=== PATIENT | male | born 1995 | race Caucasian/White ===

== ENCOUNTER 2019-07-30 14:27 | Observation (INO) | payer MEDICARE ==
[2019-07-30 14:31] VITALS: TEMP 97.8; BMI 27.7
[2019-07-30] MEDS ORDERED: KETOROLAC TROMETHAMINE 30 MG/1 ML VIAL IVPUSH ONE (15:41)
[2019-07-30] MEDS ORDERED: KETOROLAC TROMETHAMINE 30 MG/1 ML VIAL ONE (15:49)
--- NOTE | 2019-07-30 15:52 | PDOC ---
History of Present Illness - General Chief Complaint: Pain Stated Complaint: SOB/CHEST PAIN Time Seen by Provider: 07/30/19 14:43 - History of Present Illness Initial Comments: 07/30/19 15:47 CHIEF COMPLAINT: chest pain HISTORY OF PRESENT ILLNESS: 23 yo M with no PMH presents to fast track with sudden onset chest pain since this morning. Patient states he was not doing anything when the pain started "I was just sitting there." He describes the pain as a stabbing pain "like I'm getting stabbed in the chest" and states that he cannot breathe due to the pain. The pain is worsened by any movement as well as inspiration. Denies any fever, cough, chills, nausea, vomiting. No recent travel or sick contacts. PAST MEDICAL HISTORY: Denies past medical history FAMILY HISTORY: Grandfather hx of [place] in his 20s. SOCIAL HISTORY: Marijuana use, daily 1-2 pack daily smoker. Denies alcohol, illicit drug use. SURGICAL HISTORY: Denies ALLERGIES: No known drug allergies REVIEW OF SYSTEMS General/Constitutional: Denies fever or chills. Denies weakness, weight change. HEENT: Denies change in vision. Denies ear pain or discharge. Denies sore throat. Cardiovascular: Right sided chest pain, worse with movement. Respiratory: Denies cough, wheezing, or hemoptysis. Gastrointestinal: Denies nausea, vomiting, diarrhea or constipation. Denies rectal bleeding. Genitourinary: Denies dysuria, frequency, or change in urination. Musculoskeletal: Denies joint or muscle swelling or pain. Denies neck or back pain. Skin and breasts: Denies rash or easy bruising. Neurologic: Denies headache, vertigo, loss of consciousness, or loss of sensation. PHYSICAL EXAM General Appearance: Anxious-appearing. Appropriately dressed. No apparent distress, no intoxication. HEENT: EOMI, PERRLA, normal ENT inspection, normal voice, TMs normal, pharynx normal. No conjunctival pallor. No photophobia, scleral icterus. Neck: Supple. Trachea midline. No tenderness, rigidity, carotid bruit, stridor , lymphadenopathy, or thyromegaly. Respiratory/Chest: Poor air entry. R chest wall tendernss. No crackles, rales , rhonchi, stridor, wheezing appreciated. Cardiovascular: RRR. S1, S2. No JVD, murmur, bradycardia, tachycardia. Vascular Pulses: Dorsalis-Pedis (R): 2+, Dorsalis-Pedis (L): 2+ Gastrointestinal/Abdominal: Normal bowel sounds. Abdomen soft, non-distended. No tenderness or rebound tenderness. No organomegaly, pulsatile mass, guarding , hernia, hepatomegaly, splenomegaly. Musculoskeletal/Extremities: Normal inspection. FROM of all extremities, normal capillary refill. Pelvis Stable. No CVA tenderness. No tenderness to extremities, pedal edema, swelling, erythema or deformity. Integumentary: Appropriate color, dry, warm. No cyanosis, erythema, jaundice or rash Neurologic: mat sewer II-XII intact. Fully oriented, alert. Appropriate mood/affect. Motor strength 5/5. No appreciable EOM palsy, facial droop or sensory deficit. Past History - Past Medical History Allergies/Adverse Reactions: Allergies Allergy/AdvReac Type Severity Reaction Status Date / Time No Known Allergies Allergy Verified 07/30/19 14:31 Home Medications: Ambulatory Orders NK [No Known Home Medication] 07/30/19 COPD: No - Suicide/Smoking/Psychosocial Hx Smoking History: Current every day smoker Information on smoking cessation initiated: No *Physical Exam - Vital Signs Last Vital Signs Temp Pulse Resp BP Pulse Ox 97.8 F 63 16 129/82 99 07/30/19 14:28 07/31/19 07:10 07/31/19 07:10 07/31/19 07:10 07/31/19 07:10 ED Treatment Course - LABORATORY CBC & Chemistry Diagram: 07/30/19 15:47 07/30/19 15:47 - ADDITIONAL ORDERS Additional order review: 07/30/19 15:47 RBC 5.50 MCV 95.5 MCHC 33.3 RDW 14.2 MPV 8.8 Neutrophils % 82.5 Lymphocytes % 5.1 L Monocytes % 12.2 H Eosinophils % 0.1 Basophils % 0.1 - RADIOLOGY Radiology Studies Ordered: Category Date Time Status CHEST PA & LAT [RAD] Stat Radiology 07/30/19 15:09 Completed - Medications Given in the ED: ED Medications Discontinued Medications Generic Name Dose Route Start Last Admin Trade Name Freq PRN Reason Stop Dose Admin Sodium Chloride 1,000 mls @ 83 mls/hr 07/30/19 23:45 07/31/19 00:22 Normal Saline - IV 07/31/19 11:48 83 mls/hr ASDIR BOB Administration Folic Acid 1 mg/ Thiamine HCl 1,000 mls @ 125 mls/hr 07/31/19 02:59 07/31/19 03:06 100 mg/ Multivitamins/Minerals IVPB 07/31/19 10:58 Not Given 10 ml/ Sodium Chloride ONCE ONE Ketorolac Tromethamine 15 mg 07/30/19 15:41 07/30/19 15:50 Toradol Injection - IVPUSH 07/30/19 15:42 15 mg ONCE ONE Administration Morphine Sulfate 2 mg 07/30/19 19:14 07/30/19 20:00 Morphine Injection - IVPUSH 07/30/19 19:15 2 mg ONCE ONE Administration Medical Decision Making - Medical Decision Making 07/30/19 15:51 23 yo M with no PMH presents to fast track with sudden onset chest pain since this morning. -ekg -labs -cxr -toradol 07/30/19 16:17 Patient repeatedly denied any use of cocaine or vaping. Given pain disproportionate to history, will workup to r/o cardiac etiology of chest pain. Will transfer to main ED for further workup. Note: Patient was initially triaged to Fast-track. After review of the history of present illness and physical examination by Nurse Practitioner, the patient was transfered to the main ED for higher lever of care. The patient is medically stable for transfer, ED attending and charge nurse/main ED nursing staff aware. Discussed case with attending MD Perkins and SMALL PIECE CUTTER Torsten. trimming press operator Yousef aware. *DC/Admit/Observation/Transfer Diagnosis at time of Disposition: Chest pain Qualifiers: Chest pain type: other chest pain Qualified Code(s): R07.89 - Other chest pain - Discharge Dispostion Disposition: AGAINST MEDICAL ADVICE Condition at time of disposition: Fair - Referrals - Patient Instructions - Post Discharge Activity
[2019-07-30 16:21] LABS: BASO % 0.1 % (0-2.0); EOS % 0.1 % (0-4.5); HEMATOCRIT 52.5 % (35.4-49); HEMOGLOBIN 17.5 GM/dL (11.7-16.9); LYMPH % 5.1 % (8-40); MCH 31.8 pg (25.7-33.7); MCHC 33.3 g/dl (32.0-35.9); MEAN CELL VOLUME 95.5 fl (80-96); MEAN PLT VOLUME 8.8 fl (7.5-11.1); MONO % 12.2 % (3.8-10.2); NEUT % 82.5 % (42.8-82.8); PLATELET COUNT 381 K/MM3 (134-434); RDW 14.2 % (11.9-15.9); WHITE BLOOD COUNT 22.7 K/mm3 (4.0-10.0)
[2019-07-30 16:25] LABS: BLOOD UREA NITROGEN 8.8 mg/dL (7-18); CREATININE 0.9 mg/dL (0.55-1.3); POTASSIUM 4.3 mmol/L (3.5-5.1); TOT PROT 9.4 g/dl (6.4-8.2)
[2019-07-30 16:56] LABS: PLATELET ESTIMATE INCREASED
--- NOTE | 2019-07-30 17:11 | PDOC ---
*Physical Exam - Vital Signs Last Vital Signs Temp Pulse Resp BP Pulse Ox 97.8 F 58 L 18 133/88 98 07/30/19 14:28 07/30/19 14:28 07/30/19 14:28 07/30/19 14:28 07/30/19 14:28 - Physical Exam General Appearance: Yes: Appropriately Dressed. No: Apparent Distress HEENT: positive: Normal ENT Inspection Neck: positive: Trachea midline, Supple Respiratory/Chest: positive: Chest Tender (Diffuse tenderness over right ACW), Lungs Clear, Normal Breath Sounds. negative: Respiratory Distress, Accessory Muscle Use Cardiovascular: positive: Regular Rhythm, S1, S2, Bradycardia. negative: Murmur Vascular Pulses: Femoral (R): 2+, Femoral (L): 2+, Carotid (R): 2+, Carotid (L) : 2+, Dorsalis-Pedis (R): 2+, Doralis-Pedis (L): 2+ Gastrointestinal/Abdominal: positive: Normal Bowel Sounds, Soft. negative: Tender Heart Score/ECG Review - History History: Moderately suspicious - Electrocardiogram EKG: Normal - Age Age: </= 45 - Risk Factors Risk Factors Heart Score: Yes Smoking History, Yes Positive family hx of cardiac disease Based on the list above the patient has:: 1-2 risk factors - Troponin Troponin: </= normal limit - Score Heart Score - Total: 2 ED Treatment Course - LABORATORY CBC & Chemistry Diagram: 07/30/19 15:47 07/30/19 15:47 - ADDITIONAL ORDERS Additional order review: Laboratory Results 07/30/19 07/30/19 15:47 15:47 Sodium 137 Potassium 4.3 Chloride 101 Carbon Dioxide 29 Anion Gap 7 L BUN 8.8 Creatinine 0.9 Est GFR (CKD-EPI)AfAm 139.04 Est GFR (CKD-EPI)NonAf 119.96 Random Glucose 104 Calcium 10.0 Total Bilirubin 1.0 AST 31 ALT 27 Alkaline Phosphatase 124 H Creatine Kinase 294 Troponin I < 0.02 Total Protein 9.4 H Albumin 5.0 07/30/19 15:47 RBC 5.50 MCV 95.5 MCHC 33.3 RDW 14.2 MPV 8.8 Neutrophils % 82.5 Lymphocytes % 5.1 L Monocytes % 12.2 H Eosinophils % 0.1 Basophils % 0.1 - RADIOLOGY Radiology Studies Ordered: Category Date Time Status CHEST CTA [CT] Stat CT Scan 07/30/19 16:38 Ordered - Medications Given in the ED: ED Medications Discontinued Medications Generic Name Dose Route Start Last Admin Trade Name [place] PRN Reason Stop Dose Admin Ketorolac Tromethamine 15 mg 07/30/19 15:41 07/30/19 15:50 Toradol Injection - IVPUSH 07/30/19 15:42 15 mg ONCE ONE Administration Progress Note - Progress Note Progress Note: Received signout from nurse practitioner Annie. Briefly this is a 23-year-old male comes emergency department for evaluation of rapidly progressing right sided chest pain radiating to his right neck and upper back. Patient reports the pain came on as a imaging/piercing sensation to the right chest which was worse with movement of his right arm. Pain in progressed throughout his chest extending over his neck and into his back. Patient received Toradol 50 mg and fast-track which relieved this pain is now currently 7/10. He no longer has pain with articulation of the right shoulder. Laboratory testing is notable for WBC 22.7. Patient also with elevated hemoglobin and hematocrit 17.5/52.5. Cardiac enzymes are normal. Upon questioning patient reports intranasal cocaine use yesterday. Given elevated white blood cell count, rapid progression in chest pain as well as recent cocaine use we'll get a CTA to rule out an aortic dissection. Patient will likely have to be admitted Medical Decision Making - Medical Decision Making 07/30/19 21:25 CTA is read by imaging director compensation: No definite mediastinal mass seen. No thoracic aortic aneurysm or dissection or mediastinal hematoma found. Lungs show no focal consolidation or effusion. Abdominal aorta shows no aneurysm or dissection. No retroperitoneal hematoma is seen. Small right renal cyst. I will admit to hospitalist for observation. *DC/Admit/Observation/Transfer Diagnosis at time of Disposition: Chest pain Qualifiers: Chest pain type: other chest pain Qualified Code(s): R07.89 - Other chest pain - Discharge Dispostion Condition at time of disposition: Fair Decision to Admit order: Yes - Referrals - Patient Instructions - Post Discharge Activity
[2019-07-30] MEDS ORDERED: morphine CARPU-JECT 2 MG/1 ML DISP.SYRIN IVPUSH ONE (19:14)
[2019-07-30] MEDS ORDERED: MORPHINE SULFATE 2 MG/ML VIAL ONE (20:06)
[2019-07-30] MEDS ORDERED: ACETAMINOPHEN 325 MG TABLET (FP) PO PRN (22:40)
--- NOTE | 2019-07-30 23:42 | HP ---
CHIEF COMPLAINT: Chest Pain PCP: None HISTORY OF PRESENT ILLNESS: Pt. is a 23 y.o. M w/o PMHx. presents to the ED with R. sided chest pain. Pt states it began today after 2 days of "partying." Pt. endorses using cocaine (1 gram), alcohol and marijuana at the [facility] and states that he frequently uses cocaine (inhales only, never IV). Pt. states that he buys from the same dealer all the time and that no one else who used cocaine at the [facility] got sick. Pt. endorses palpitations, reproducible chest pain that radiates the the right jaw, arm, upper back and to the diaphragm. Pt. denies this ever happening before after using cocaine. Pt. endorses chills, headache that is constant in the temporal regions bilaterally but that it moves around. Currently the chest pain is 5/10 and the headache is 8/10. Pt. endorses shortness of breath that is exacerbated by the chest pain but denies any lightheadedness or dizziness currently. ER course was notable for: (1)CXR, CBC, CMP, Trops (2)EKG, CTA Abd. CTA (3) Morphine Recent Travel: No PAST MEDICAL HISTORY: None PAST SURGICAL HISTORY: None Social History: Smokin.5 PPD Alcohol: 1.5 750ml bottles of liquor Drugs: Cocaine([facility] Only), marijuana Family History: Grandparents had heart disease Allergies No Known Allergies Allergy (Verified 07/30/19 14:31) HOME MEDICATIONS: Home Medications Medication Instructions Recorded NK [No Known Home Medication] 07/30/19 REVIEW OF SYSTEMS As above PHYSICAL EXAMINATION Vital Signs - 24 hr 07/30/19 14:28 Temperature 97.8 F Pulse Rate 58 L Respiratory 18 Rate Blood Pressure 133/88 O2 Sat by Pulse 98 Oximetry (%) GENERAL: Awake, alert, and fully oriented, in no acute distress. HEAD: Normal with no signs of trauma. EYES: Extraocular movements intact, sclera anicteric, conjunctiva clear. No lid lag. EARS, NOSE, THROAT: Ears normal, nares patent, oropharynx clear without exudates. Moist mucous membranes. NECK: Normal range of motion JVD, or masses. LUNGS: Breath sounds equal, clear to auscultation bilaterally. No wheezes, and no crackles. HEART: Regular rate and rhythm, normal S1 and S2 without murmur, rub or gallop. ABDOMEN: Soft, nontender, not distended, normoactive bowel sounds, no guarding, no rebound, no masses. MUSCULOSKELETAL: Normal range of motion at all joints. No bony deformities or tenderness. No CVA tenderness. UPPER EXTREMITIES: 2+ radial pulses, warm, well-perfused. No cyanosis. No clubbing. LOWER EXTREMITIES: 2+ pulses, warm, well-perfused. No calf tenderness. No peripheral edema. NEUROLOGICAL: Normal speech. No focal deficits appreciated PSYCHIATRIC: Cooperative. Prolonged eye contact. Appropriate mood and affect. SKIN: Warm, dry, normal turgor, extensive skin tattoos, normal capillary refill. Laboratory Results - last 24 hr 07/30/19 07/30/19 07/30/19 15:47 15:47 15:47 WBC 22.7 H RBC 5.50 Hgb 17.5 H Hct 52.5 H MCV 95.5 MCH 31.8 MCHC 33.3 RDW 14.2 Plt Count 381 MPV 8.8 Absolute Neuts (auto) 18.8 H Total Counted 100 Neutrophils % 82.5 Neutrophils % (Manual) 86.0 H Band Neutrophils % 1.0 Lymphocytes % 5.1 L Lymphocytes % (Manual) 3.0 L Monocytes % 12.2 H Monocytes % (Manual) 10 Eosinophils % 0.1 Basophils % 0.1 Nucleated RBC % 0 Platelet Estimate Increased Platelet Comment Rare giant plts Sodium 137 Potassium 4.3 Chloride 101 Carbon Dioxide 29 Anion Gap 7 L BUN 8.8 Creatinine 0.9 Est GFR (CKD-EPI)AfAm 139.04 Est GFR (CKD-EPI)NonAf 119.96 Random Glucose 104 Calcium 10.0 Total Bilirubin 1.0 AST 31 ALT 27 Alkaline Phosphatase 124 H Creatine Kinase 294 Creatine Kinase Index 0.6 CK-MB (CK-2) 2.0 Troponin I < 0.02 Total Protein 9.4 H Albumin 5.0 ASSESSMENT/PLAN: Pt. is a 23 y.o. M w/o PMHx. presents to the ED with R. sided chest pain. Pt states it began today after 2 days of "partying" with cocaine, EtOH and marijuana. #Chest Pain r/o ACS Trop - x1, f/u repeat EKG showed normal variant of J-Point elevations(early repolarizations) in precordial leads CXR: unremarkable CTA/Abd. CTA: No acute pathology, no evidence of dissection or mediastinal pathology, no PE CK wnl, f/u UA NO BB Ibuprofen and Tylenol PRN for pain Cardiac monitoring--> if benign can D/c in AM #Poly substance abuse f/u UTox Counselled Pt. on cocaine and nicotine cessation as well as decreasing alcohol use Pt. would benefit from additional counseling and options for nicotine cessation (states that the gum does not work for him) #FEN NS @ 83 for 1 bag, encourage PO intake monitor electrolytes and replete as needed Regular Diet #DVT Ppx Early ambulation ATTENDING PHYSICIAN STATEMENT I saw and evaluated the patient. I reviewed the resident's note and discussed the case with the resident. I agree with the resident's findings and plan as documented. SUBJECTIVE: OBJECTIVE: ASSESSMENT AND PLAN:
[2019-07-30] MEDS ORDERED: IBUPROFEN 400 MG TABLET (FP) PO PRN (23:44)
[2019-07-30] MEDS ORDERED: SODIUM CHLORIDE 1,000 ML IV SCH (23:45)
--- NOTE | 2019-07-30 23:53 | PN ---
Teaching Attending Note Name of Resident: Andrez Sanchez ATTENDING PHYSICIAN STATEMENT I saw and evaluated the patient. Chart, data, imaging reviewed. I reviewed the resident's note and discussed the case with the resident. I agree with the resident's findings and plan as documented. SUBJECTIVE: 23yo man, cocaine user, last use was one day ago (sniff, denied injecting), c/o right sided chest pain which radiated to neck and back, severe 10/10 associated with some sob, started 07/30 at around 7am, was driving when it started. No previous Hx of chest pain. Admits to binge drinking on the weekends, and habitual marijuana use as well. OBJECTIVE: Last Vital Signs Temp Pulse Resp BP Pulse Ox 97.8 F 58 L 18 133/88 98 07/30/19 14:28 07/30/19 14:28 07/30/19 14:28 07/30/19 14:28 07/30/19 14:28 general- nad, aaox3, well built heent- at, nc neck supple cv -s1+s2_rrr, no murmur chest clear abdomen -soft, nt ext -no pedal edema Abnormal Lab Results 07/30/19 07/30/19 15:47 15:47 WBC 22.7 H Hgb 17.5 H Hct 52.5 H Absolute Neuts (auto) 18.8 H Neutrophils % (Manual) 86.0 H Lymphocytes % 5.1 L Lymphocytes % (Manual) 3.0 L Monocytes % 12.2 H Anion Gap 7 L Alkaline Phosphatase 124 H Total Protein 9.4 H ekg showed nsr with early repolarization pattern cta chest reviewed ASSESSMENT AND PLAN: #chest pain likely cocaine induced. No evidence of aortic dissection on CTA -tele-obs -trend trop -echo -NGL prn -avoid bblockers #polysubstance abuse - counsled on cocaine, marijuana, etoh cessation. CK was wnl so not suspecting rhabdo from cocaine use. -thiamine -folate -IV fluid hydration -urine toxicology #leukocytosis- leukemoid reaction? No evidence of infection -trend wbc -monitor off abx -elevated hgb -likely hemoconcentration from intravascular volume depletion -iv fluid hydration -repeat cbc #dvt ppx -scd
[2019-07-31] MEDS ORDERED: FOLIC ACID INJECTION - 1 MG, THIAMINE HCL 100 MG, MULTIVIT INJECTION ADULT 10 ML in SOD... IVPB ONE (02:59)
[2019-07-31 07:32] VITALS: BP 129/82; PULSE 63
--- NOTE | 2019-07-31 16:52 | EKG ---
Test Reason : Blood Pressure : / mmHG Vent. Rate : 052 BPM Atrial Rate : 052 BPM P-R Int : 144 ms QRS Dur : 088 ms QT Int : 430 ms P-R-T Axes : 080 068 041 degrees QTc Int : [address] ELEVATION LATERAL LEADS, PROBABLE EARLY REPOLARIZATION OTHERWISE NORMAL ECG NO PREVIOUS ECGS AVAILABLE Confirmed by JATIN MCKEON MD ([id number]) on 07/31/2019 4:52:49 PM Referred By: Confirmed By:JATIN MCKEON MD
--- NOTE | 2019-07-31 17:09 | DS ---
Physical Examination Vital Signs: Vital Signs Temperature 97.8 F 07/30/19 14:28 Pulse Rate 63 07/31/19 07:10 Respiratory Rate 16 07/31/19 07:10 Blood Pressure 129/82 07/31/19 07:10 O2 Sat by Pulse Oximetry (%) 99 07/31/19 07:10 Findings/Remarks: patient was not seen by me. I was informed by ER staff that he left earlier AMA from ER Labs: CBC, BMP 07/30/19 15:47 07/30/19 15:47 Discharge Summary Reason For Visit: CHEST PAIN Current Active Problems Chest pain (Acute) Hospital Course: 23 y/o man with h/o substance abuse, presented with Cp after cocaine use. on admission his CTA of chest and abd did not show any dissection . EKG showed ST elevation likely repolarization and his trops were neg. his WBC was elevated. He was supposed ti be monitored on tele and re-evaluated. but he left AMA from ER before I met him . Condition: Fair - Instructions - Home Medications Comprehensive Discharge Medication List: Ambulatory Orders NK [No Known Home Medication] 07/30/19 This patient is new to me today: Yes Date on this admission: 07/31/19 Emergency Visit: Yes ED Registration Date: 07/30/19 Care time: The patient presented to the Emergency Department on the above date and was hospitalized for further evaluation of their emergent condition. Critical Care patient: No - Discharge Referral Referred to [facility] Med [facility] No
== END 2019-07-31 07:26 | disposition left against medical advice (07) ==
LOC: JER 14:27 → JERBED 21:51 → INTOOBSV 21:51
PROVIDERS: ADMIT Internal Medicine; ATTEND Internal Medicine
PROC: 3E0333Z Introduction of Anti-inflammatory into Peripheral Vein, Percutaneous Approach (ICD-10-PCS; principal; 2019-07-30)
PROC: 3E033NZ Introduction of Analgesics, Hypnotics, Sedatives into Peripheral Vein, Percutaneous Approach (ICD-10-PCS; 2019-07-30)
PROC: 3E0337Z Introduction of Electrolytic and Water Balance Substance into Peripheral Vein, Percutaneous Approach (ICD-10-PCS; 2019-07-30)
DX: R07.89 Other chest pain (principal); F17.210 Nicotine dependence, cigarettes, uncomplicated; F19.10 Other psychoactive substance abuse, uncomplicated; D72.829 Elevated white blood cell count, unspecified
CPT/HCPCS: 36415; 71046-TC-FY; 71275-TC; 74174-TC; 80053; 82550; 82553; 84484; 85025; 93005; 93010; 96374; 96375; 99285-25; G0378; J7030